=== PATIENT | female | born 2000 | race Caucasian/White ===

== ENCOUNTER → 2021-02-26 | Outpatient (CLI) | payer OTHER ==
[2021-02-26 15:16] LABS: HEMATOCRIT 40.8 % (36.0-47.0); HEMOGLOBIN 13.8 g/dl (12.0-15.5); MEAN CORPUSCULAR HEMOGLOBIN 30.1 pg (27.0-33.0); MEAN CORPUSCULAR HGB CONC 33.8 g/dl (32.0-36.5); MEAN CORPUSCULAR VOLUME 88.9 fl (80.0-96.0); PLATELET COUNT, AUTOMATED 268 10^3/uL (150-450); RED BLOOD COUNT 4.59 10^6/uL (4.00-5.40); WHITE BLOOD COUNT 8.9 10^3/uL (4.0-10.0)
[2021-02-26 16:29] LABS: HEPATITIS C VIRUS ABY INDEX < 0.0 INDEX (<0.8); HIV 1&2 SCREEN CENTAUR NEGATIVE (NEGATIVE)
[2021-02-26 17:16] LABS: GC DNA AMPLIFICATION NEGATIVE (NEGATIVE)
== END ==
LOC: M PLALAB 13:46
PROVIDERS: ATTEND Advanced Practice Midwife
DX: Z34.91 Encounter for supervision of normal pregnancy, unspecified, first trimester (principal); Z3A.00 Weeks of gestation of pregnancy not specified

== ENCOUNTER → 2021-04-05 | Outpatient (CLI) | payer OTHER | LOC: M PLALAB 14:24 | PROVIDERS: ATTEND Advanced Practice Midwife | DX: Z34.02 Encounter for supervision of normal first pregnancy, second trimester (principal) ==

== ENCOUNTER → 2021-09-20 | Outpatient (REF) | payer OTHER | LOC: M PLALAB 16:42 | PROVIDERS: ATTEND Obstetrics & Gynecology | DX: Z34.83 Encounter for supervision of other normal pregnancy, third trimester (principal) ==

== ENCOUNTER 2021-09-29 09:28 | Inpatient (IN) | payer OTHER ==
[2021-09-29] VITALS (13 sets, daily range): BP systolic 108–147; BP diastolic 58–86
[~2021-09-29] VITALS: Ht 170.2 cm; Wt 71.2 kg
[2021-09-29] MEDS ORDERED: PRENTAB9 PO (09:58)
[2021-09-29] MEDS ORDERED: TUMS750C5 PO (09:58)
[2021-09-29] MEDS ORDERED: HOME MED LIST COMPLETE! XX SCH (10:00)
[2021-09-29] MEDS ORDERED: LACTATED RINGER'S 1000 ML IV STA (10:27)
[2021-09-29] MEDS ORDERED: LR 1,000 ML IV SCH (10:30)
[2021-09-29] MEDS ORDERED: OXYTOCIN DRIP 30 UNITS in IV 1 EA IV PRN ×4 (10:30)
[2021-09-29] MEDS ORDERED: OXYTOCIN INJ 10 UNITS/ML VIAL (J2590) IM PRN (10:30)
[2021-09-29] MEDS ORDERED: LIDOCAINE 1% MDV 20ML VIAL INFIL PRN (10:30)
[2021-09-29] MEDS ORDERED: CARBOPROST TROMETHAMINE 250 MCG/ML AMP IM PRN (10:30)
[2021-09-29] MEDS ORDERED: TRANEXAMIC ACID INJection 1,000 MG in NS 100 ML IV PRN (10:30)
[2021-09-29] MEDS ORDERED: METHYLERGONOVINE MALEATE 0.2 MG/ML VIAL (J2210) IM PRN (10:30)
[2021-09-29 10:54] LABS: HEMOGLOBIN 13.5 g/dl (12.0-15.5); MEAN CORPUSCULAR HEMOGLOBIN 28.4 pg (27.0-33.0); MEAN CORPUSCULAR HGB CONC 32.9 g/dl (32.0-36.5); MEAN CORPUSCULAR VOLUME 86.1 fl (80.0-96.0); PLATELET COUNT, AUTOMATED 241 10^3/uL (150-450); RED BLOOD COUNT 4.76 10^6/uL (4.00-5.40)
[2021-09-29] MEDS ORDERED: DIBUCAINE 1% OINTMENT 30GM TOP PRN (13:20)
[2021-09-29] MEDS ORDERED: IBUPROFEN 600MG TAB PO PRN (13:20)
[2021-09-29] MEDS ORDERED: ACETAMINOPHEN 500 MG TAB PO PRN (13:20)
[2021-09-29] MEDS ORDERED: ACETAMINOPHEN TAB 650MG DOSE (2X325MG) PO PRN (13:20)
[2021-09-29] MEDS ORDERED: RHOGAM 300 MCG (1500 IU) INJ (J2790) IM SCH (13:20)
[2021-09-29] MEDS ORDERED: DOCUSATE SODIUM 100MG CAPSULE PO PRN (13:20)
[2021-09-29] MEDS ORDERED: METHYLERGONOVINE MALEATE 0.2 MG TAB PO PRN (13:20)
[2021-09-29] MEDS ORDERED: OXYTOCIN DRIP 30 UNITS in IV 1 EA IV SCH (13:20)
[2021-09-29] MEDS: IBUPROFEN 800 MG TAB PO PRN ×2 (14:23→22:27)
[2021-09-30 06:15] VITALS: BP 122/66
[2021-09-30] MEDS ORDERED: PRENATAL VITAMINS CHEWABLE TABLET PO SCH (09:00)
[2021-09-30] MEDS ORDERED: ACET-683 PO (13:07)
[2021-09-30] MEDS ORDERED: IBUP80TA PO (13:07)
[2021-10-01] MEDS ORDERED: MEASLES,MUMPS,RUBELLA VACCINE INJ (MMR-II) (90707) SC.IMMUN ONE (09:00)
== END 2021-09-30 15:03 | disposition home or self-care (01) | DRG 807 ==
LOC: M LDO 09:28 → M LDI 10:20 → M OBS 14:46
PROVIDERS: ADMIT Advanced Practice Midwife; ATTEND Advanced Practice Midwife
PROC: 10E0XZZ Delivery of Products of Conception, External Approach (ICD-10-PCS; principal; 2021-09-29)
DX: O80 Encounter for full-term uncomplicated delivery (principal); Z37.0 Single live birth; Z3A.38 38 weeks gestation of pregnancy; Z86.79 Personal history of other diseases of the circulatory system; Z79.899 Other long term (current) drug therapy; Z91.19 Patient's noncompliance with other medical treatment and regimen